=== PATIENT | female | born 1960 | race Caucasian/White ===

== ENCOUNTER 2019-10-21 17:23 | Inpatient (IN) | payer SELFPAY ==
[~2019-10-21] VITALS: Ht 177.8 cm; Wt 132.9 kg
[2019-10-21] MEDS ORDERED: METFORMIN1000 MG PO (18:28)
[2019-10-21 18:41] LABS: HEMATOCRIT 43.7 % (37.0-47.0); HEMOGLOBIN 13.6 g/dl (12.0-16.0); IMMATURE GRANULOCYTES 0.6 % (0.0-5.0); MEAN CELL VOLUME 86.7 fL CALC (80.0-100.0); MEAN CORPUSCULAR HGB CONC 31.1 g/L CALC (32.0-36.0); NEUT# 15.19 thou/uL (2.00-7.15); RED BLOOD COUNT 5.04 mill/uL (4.20-5.60); RED CELL DISTRI WIDTH 14.1 % (11.5-15.5)
[2019-10-21 19:03] LABS: ALBUMIN 4.4 g/dL (3.2-5.0); ALKALINE PHOSPHATASE 132 u/l (38-126); ANION GAP 14 (6-22 (CALC)); BILIRUBIN, TOTAL 1.2 mg/dL (0.0-1.4); BUN 7 mg/dL (7-17); BUN/CREATININE RATIO 13 (12-20 (CALC)); CARBON DIOXIDE 31 mmol/l (22-30); CHLORIDE 98 mmol/l (95-108); CREATININE 0.6 mg/dL (0.5-1.0); GFR > 60 ML/MIN (>=60 (CALC)); GFR FOR AFR.AMER. > 60 ML/MIN (>=60 (CALC)); POTASSIUM 4.2 mmol/l (3.5-5.1); SGOT/AST 30 u/l (14-36); SODIUM 139 mmol/l (137-146); TOTAL PROTEIN 8.2 g/dL (6.3-8.2)
[2019-10-21 19:14] LABS: MYOGLOBIN 26 ng/mL (0 - 62)
[2019-10-21 20:40] LABS: URINE BILIRUBIN - DIPSTICK NEGATIVE (NEGATIVE); URINE BLOOD DIPSTICK NEGATIVE (NEGATIVE); URINE COLOR YELLOW; URINE GLUCOSE - DIPSTICK NEGATIVE (NEGATIVE); URINE KETONE NEGATIVE (NEGATIVE); URINE LEUK ESTERASE NEGATIVE (NEGATIVE); URINE NITRITE - DIPSTICK NEGATIVE (Negative); URINE PROTEIN - DIPSTICK NEGATIVE (NEG-TRACE); URINE UROBILINOGEN - DIPSTICK 0.2 E.U./dL (0.2)
[2019-10-21 21:49] VITALS: BP 115/60
[2019-10-21 23:50] VITALS: BP 113/62
[2019-10-22 04:37] VITALS: BP 143/67
[2019-10-22 09:39] VITALS: BP 123/50
[2019-10-22 11:00] VITALS: BP 149/64
[2019-10-22 14:35] VITALS: BP 136/62
[2019-10-22 19:01] VITALS: BP 105/56
[2019-10-22 20:15] VITALS: BP 120/56
[2019-10-23 00:06] VITALS: BP 120/56
[2019-10-23 03:21] VITALS: BP 126/67
[2019-10-23 05:56] LABS: HEMATOCRIT 41.3 % (37.0-47.0); HEMOGLOBIN 12.6 g/dl (12.0-16.0); MEAN CELL VOLUME 88.2 fL CALC (80.0-100.0); MEAN CORPUSCULAR HGB 26.9 pG CALC (26.0-32.0); MEAN CORPUSCULAR HGB CONC 30.5 g/L CALC (32.0-36.0); RED BLOOD COUNT 4.68 mill/uL (4.20-5.60)
[2019-10-23 06:24] LABS: ANION GAP 14 (6-22 (CALC)); BUN 20 mg/dL (7-17); BUN/CREATININE RATIO 33 (12-20 (CALC)); CARBON DIOXIDE 27 mmol/l (22-30); CHLORIDE 100 mmol/l (95-108); CREATININE 0.6 mg/dL (0.5-1.0); GFR > 60 ML/MIN (>=60 (CALC)); GFR FOR AFR.AMER. > 60 ML/MIN (>=60 (CALC)); MAGNESIUM 2.2 mg/dL (1.6-2.3); POTASSIUM 4.8 mmol/l (3.5-5.1); SODIUM 136 mmol/l (137-146)
[2019-10-23 08:02] VITALS: BP 117/59
[2019-10-23 11:32] VITALS: BP 107/50
[2019-10-23] MEDS ORDERED: PREDNISONE10 MG PO (14:20)
[2019-10-23] MEDS ORDERED: LEVAQUIN750 MG PO (14:20)
== END 2019-10-23 16:42 | disposition home or self-care (01) | DRG 190 ==
LOC: ED 17:23 → ED-I 19:28 → ED 19:48 → MS2 19:49
PROVIDERS: Family Medicine; Nurse Practitioner Family; ADMIT Internal Medicine; ATTEND Internal Medicine
PROC: 3E02340 Introduction of Influenza Vaccine into Muscle, Percutaneous Approach (ICD-10-PCS; principal; 2019-10-22)
PROC: 3E0234Z Introduction of Serum, Toxoid and Vaccine into Muscle, Percutaneous Approach (ICD-10-PCS; 2019-10-22)
DX: J43.9 Emphysema, unspecified (principal); J18.9 Pneumonia, unspecified organism; R09.02 Hypoxemia; E11.9 Type 2 diabetes mellitus without complications; M19.90 Unspecified osteoarthritis, unspecified site; F17.210 Nicotine dependence, cigarettes, uncomplicated; Z79.84 Long term (current) use of oral hypoglycemic drugs; Z87.440 Personal history of urinary (tract) infections; Z23 Encounter for immunization
CPT/HCPCS: J1650

== ENCOUNTER 2022-10-06 14:49 | Emergency (ER) | payer OTHER ==
[~2022-10-06] VITALS: Ht 177.8 cm; Wt 129.0 kg
[~2022-10-06 14:49] MED LIST: LEVAQUIN750 MG PO; METFORMIN1000 MG PO; PREDNISONE10 MG PO
[2022-10-06] MEDS ORDERED: VALTREX1 GM PO (18:29)
[2022-10-06 20:32] VITALS: BP 138/76
== END 2022-10-06 20:43 | disposition home or self-care (01) ==
LOC: ED 14:49
DX: B02.30 Zoster ocular disease, unspecified (principal); E11.9 Type 2 diabetes mellitus without complications; F17.200 Nicotine dependence, unspecified, uncomplicated

== ENCOUNTER 2023-10-13 10:57 | Emergency (ER) | payer OTHER ==
[~2023-10-13] VITALS: Ht 177.8 cm; Wt 136.0 kg
[~2023-10-13 10:57] MED LIST changes: +VALTREX1 GM PO
[2023-10-13] MEDS ORDERED: TRULICITY4.5 MG/0.5 PO (11:08)
[2023-10-13] MEDS ORDERED: MOTRIN800 MG PO (11:49)
[2023-10-13] MEDS ORDERED: AMOX/K CLAV875 M1 PO (11:49)
[2023-10-13 12:00] VITALS: BP 149/88
== END 2023-10-13 12:23 | disposition home or self-care (01) ==
LOC: ED 10:57
DX: K05.10 Chronic gingivitis, plaque induced (principal); K04.7 Periapical abscess without sinus; K02.9 Dental caries, unspecified; S02.5XXA Fracture of tooth (traumatic), initial encounter for closed fracture; X58.XXXA Exposure to other specified factors, initial encounter; F17.210 Nicotine dependence, cigarettes, uncomplicated

== ENCOUNTER 2024-07-12 19:27 | Emergency (ER) | payer MEDICARE, MEDICAID ==
[2024-07-12] VITALS (8 sets, daily range): BP systolic 91–132; BP diastolic 48–67
[~2024-07-12] VITALS: Ht 177.8 cm; Wt 80.0 kg
[~2024-07-12 19:27] MED LIST changes: +AMOX/K CLAV875 M1 PO; +MOTRIN800 MG PO; +TRULICITY4.5 MG/0.5 PO
[2024-07-12] MEDS ORDERED: ACETAMINOPHEN 500 MG TAB PO ONE (19:50)
[2024-07-12 20:22] LABS: BASO% 0.2 % (0-3); EOS% 1.3 % (0-8); HEMATOCRIT 43.6 % (37.0-47.0); HEMOGLOBIN 13.9 g/dl (12.0-16.0); IMMATURE GRANULOCYTES 0.5 % (0.0-5.0); MEAN CORPUSCULAR HGB 27.7 pG CALC (26.0-32.0); MEAN CORPUSCULAR HGB CONC 31.9 g/dL CAL (32.0-36.0); MONO% 4.7 % (2-13); NEUT# 9.57 thou/uL (2.00-7.15); NEUT% 76.3 % (42-76); RED BLOOD COUNT 5.01 mill/uL (4.20-5.60); RED CELL DISTRI WIDTH 13.2 % (11.5-15.5)
[2024-07-12 20:31] LABS: CREATININE 0.8 mg/dL (0.5-1.0); POTASSIUM 3.9 mmol/l (3.5-5.1)
[2024-07-12] MEDS ORDERED: levoFLOXacin 500 MG TAB PO ONE ×2 (21:40→21:45)
[2024-07-12] MEDS ORDERED: LEVOFLOXACIN750 MG PO (21:40)
[2024-07-12] MEDS ORDERED: NEOMYCIN-BACITRACIN-POLYMYXIN 0.5 GM/PAK PAK TOP ONE (21:45)
[2024-07-13] MEDS ORDERED: JANUVIA50 MG PO (02:11)
== END 2024-07-12 22:01 | disposition home or self-care (01) ==
LOC: ED 19:27
PROVIDERS: Family Medicine
DX: E11.628 Type 2 diabetes mellitus with other skin complications (principal); L08.9 Local infection of the skin and subcutaneous tissue, unspecified; S90.921A Unspecified superficial injury of right foot, initial encounter; W26.8XXA Contact with other sharp object(s), not elsewhere classified, initial encounter; Y92.009 Unspecified place in unspecified non-institutional (private) residence as the place of occurrence of the external cause; Z79.85 Long-term (current) use of injectable non-insulin antidiabetic drugs